=== PATIENT | female | born 1995 | race African-American/Black ===

== ENCOUNTER 2016-07-17 18:07 | Emergency (ER) | payer MEDICAID ==
[~2016-07-17 18:07] MED LIST: KETO10 PO; LAMO25CH CHEW; LORA-373 PO; SUMA50TA2 PO; TRAZ50TA12 PO
[2016-07-17 18:17] VITALS: BP 113/75; PULSE 60; RESP 19; TEMP 98.2; O2SAT 98
[2016-07-25] MEDS ORDERED: METO10TA PO (15:49)
[2016-07-25] MEDS ORDERED: BENA25TA3 PO (15:49)
== END 2016-07-17 19:59 | disposition left against medical advice (07) ==
LOC: NED 18:07
DX: R51 Headache (principal)
CPT/HCPCS: 99281

== ENCOUNTER 2016-07-31 12:08 | Emergency (ER) | payer MEDICAID ==
[~2016-07-31] VITALS: Ht 157.5 cm; Wt 58.0 kg
[~2016-07-31 12:08] MED LIST changes: +BENA25TA3 PO; +METO10TA PO; -SUMA50TA2 PO
[2016-07-31 12:09] VITALS: BP 101/66; PULSE 78; RESP 15; TEMP 97.8; O2SAT 98
--- NOTE | 2016-07-31 12:48 | PD ---
HPI Chief Complaint: Headache Time Seen by Provider: 12:33 Travel History International Travel<30 days: No Contact w/Intl Traveler<30days: No Traveled to known affect area: No History of Present Illness HPI 21-year-old female complains of mental stress and headache. Patient states that she is under a lot of mental stress since yesterday from school. Patient was walking around her place and banging her head against the wall. Patient states that she started having headache neck pain nausea and diarrhea this morning. Patient denies any loss of consciousness. Patient denies any visual change. Patient denies any chest pain or shortness of breath. Patient denies abdominal pain. Patient denies any focal weakness or numbness of extremity. Patient denies any chance of being . Patient has history of migraine. On a scale of 1-10 the headache is a 10. PFSH Past Medical History Anemia: Yes Anxiety: Yes High Cholesterol: Yes Diminished Hearing: No Gastrointestinal Disorders: Yes (IBS) Respiratory: Yes Immunizations Current: Yes Tetanus Vaccination: < 5 Years ?: Not LMP: 07/09/16 : 2 Para: 1 Miscarriage: 1 Past Surgical History Section: Yes Other Surgery: Yes (ENDOSCOPY) Social History Alcohol Use: No Tobacco Use: No Substance Use: No (PATIENT DENIES) Allergies-Medications (Allergen,Severity, Reaction): Coded Allergies: Cat Dander (Verified Allergy, Unknown, 07/31/16) Uncoded Allergies: CITRUS FRUIT (Adverse Reaction, Intermediate, 01/19/14) Reported Meds & Prescriptions Reported Meds & Active Scripts Active Review of Systems General / Constitutional: No: Fever Eyes: No: Visual changes HENT: Positive: Headaches Cardiovascular: No: Chest Pain or Discomfort Respiratory: No: Shortness of Breath Gastrointestinal: Positive: Nausea, Diarrhea, No: Abdominal Pain Genitourinary: No: Dysuria Musculoskeletal: No: Pain Skin: No Rash Neurologic: No: Weakness Psychiatric: No: Depression Endocrine: No: Polydipsia Hematologic/Lymphatic: No: Easy Bruising Physical Exam Narrative GENERAL: Well-nourished, well-developed patient. SKIN: Focused skin assessment warm/dry. HEAD: Normocephalic. EYES: No scleral icterus. No injection or drainage. Pupils 3 mm equal reactive NECK: Supple, trachea midline. No JVD or lymphadenopathy. CARDIOVASCULAR: Regular rate and rhythm without murmurs, gallops, or rubs. RESPIRATORY: Breath sounds equal bilaterally. No accessory muscle use. GASTROINTESTINAL: Abdomen soft, non-tender, nondistended. MUSCULOSKELETAL: No cyanosis, or edema. BACK: Nontender without obvious deformity. No CVA tenderness. Neurologic exam: Patient's awake and alert oriented 3. Data Data Last Documented VS Vital Signs Date Time Temp Pulse Resp B/P Pulse Ox O2 Delivery O2 Flow Rate FiO2 07/31/16 12:09 97.8 78 15 101/[address] Brain W/O Iv Contrast(Rout) (07/31/16 12:41) [facility] Medical Decision Making Medical Screen Exam Complete: Yes Emergency Medical Condition: Yes Interpretation(s) Last Impressions Head CT 07/31/16 1241 Signed Impressions: Service Date/Time: , July 31, 2016 13:04 - CONCLUSION: Negative noncontrast CT brain. Andi Viramontes MD Differential Diagnosis Differential diagnosis including migraine headache, tension headache, cluster headache, head contusion, head concussion, intracranial hemorrhage. Narrative Course 21-year-old female with headache. Patient has been banging her head against a wall last night. Diagnosis Primary Impression: Closed head injury Qualified Code: S09.90XA - Closed head injury, initial encounter Patient Instructions: General Instructions Additional Instructions: Head trauma instructions given. [id number] Prilosec and Imodium for GI symptom. Follow-up with personal physician. Tylenol for headache. Over-the- counter Excedrin Migraine for headache. Return as needed. Med/Other Pt SpecificInfo: No Change to Meds Scripts No Active Prescriptions or Reported Meds Disposition: 01 DISCHARGE HOME Condition: Stable Giorgi Ibarra MD Jul 31, 2016 12:48
--- NOTE | 2016-07-31 13:54 | RADRPT ---
EXAM DATE/TIME: 07/31/2016 13:04 [facility] COMPARISON: No previous studies available for comparison. INDICATIONS : Cephalgia. RADIATION DOSE: 33.54 CTDIvol (mGy) MEDICAL HISTORY : Headaches for one month. SURGICAL HISTORY : section. ENCOUNTER: Initial ACUITY: 1 day PAIN SCALE: 10/10 LOCATION: Bilateral entire head region. TECHNIQUE: Multiple contiguous axial images were obtained of the head. Using automated exposure control and adj ustment of the mA and/or kV according to patient size, radiation dose was kept as low as reasonably a chievable to obtain optimal diagnostic quality images. FINDINGS: CEREBRUM: The ventricles are normal for age. No evidence of midline shift, mass lesion, hemorrhage or acute in farction. No extra-axial fluid collections are seen. POSTERIOR FOSSA: The cerebellum and brainstem are intact. The 4th ventricle is midline. The cerebellopontine angle i s unremarkable. EXTRACRANIAL: The visualized portion of the orbits is intact. SKULL: The calvaria is intact. No evidence of skull fracture. CONCLUSION: Negative noncontrast CT brain. Andi Viramontes MD on July 31, 2016 at 13:51 Board Certified Radiologist. This report was verified electronically.
== END 2016-07-31 14:38 | disposition home or self-care (01) ==
LOC: NEPD 12:08
DX: S09.90XA Unspecified injury of head, initial encounter (principal); W22.01XA Walked into wall, initial encounter; Y93.01 Activity, walking, marching and hiking; Z73.3 Stress, not elsewhere classified
CPT/HCPCS: 70450